=== PATIENT | female | born 1960 | race Caucasian/White ===

== ENCOUNTER 2016-11-18 06:13 | Day surgery (SDC) | payer BC, OTHER ==
[~2016-11-18] VITALS: Ht 162.6 cm; Wt 68.0 kg
[~2016-11-18 06:13] MED LIST: AMLO5TAB2 PO; LEVAAER4 IN; PRAV20TA3 OR; THYR30TA PO; TRIA75TA55 PO; [UNRECOGNIZED DRUG - CODE] PO
[2016-11-18] MEDS ORDERED: ceFAZolin 1GM/50ML D5W 50 ML IV ONE (06:49)
[2016-11-18] MEDS ORDERED: LIDOCAINE W/ EPINEPHRINE 1 % INJ 30ML ONE (07:02)
[2016-11-18] MEDS ORDERED: ceFAZolin 1GM VL ONE (07:02)
[2016-11-18] MEDS ORDERED: GELATIN 1 SPONGE SIZE 100 TOP ONE (07:03)
[2016-11-18] MEDS ORDERED: CONJ ESTROGENS 0.625MG/GM VAG CRM 30GM PV ONE (07:03)
[2016-11-18] MEDS ORDERED: VASOPRESSIN 20 UNIT/ML ONE (07:03)
[2016-11-18] MEDS ORDERED: BUPIVACAINE 0.25% INJ 50ML VIAL ONE (07:03)
[2016-11-18] MEDS ORDERED: METHYLENE BLUE 1% 1 ML VIAL IV ONE (07:03)
[2016-11-18] MEDS ORDERED: fentaNYL CITRATE 100 MCG/2 ML VL ONE ×2 (07:42→07:44)
[2016-11-18] MEDS ORDERED: MIDAZOLAM HCL 1MG/1ML-2 ML VIAL ONE (07:42)
[2016-11-18] MEDS ORDERED: PROPOFOL 10 MG/ML 20 ML IV ONE (07:42)
[2016-11-18] MEDS ORDERED: ROCURONIUM 10MG/ML 10ML VIAL IV ONE (07:43)
[2016-11-18] MEDS ORDERED: SUCCINYLCHOLINE CHLORIDE 20 MG/ML 10ML VIAL IV ONE (07:56)
[2016-11-18] MEDS ORDERED: HYDROmorphone HCL 2 MG/ML VL ONE (08:56)
[2016-11-18] MEDS: HYDROmorphone HCL 2 MG/ML VL IV PRN ×4 (09:02→09:32)
[2016-11-18] MEDS ORDERED: hydrALAZINE HCL 20 MG/ML VL IV PRN (09:15)
[2016-11-18] MEDS ORDERED: ONDANSETRON HCL 4 MG/2 ML VIAL IV ONE (09:15)
[2016-11-18] MEDS ORDERED: ePHEDrine SULFATE 50 MG/ML AMP IV PRN (09:15)
[2016-11-18 09:55] VITALS: BP 100/45
== END 2016-11-18 09:55 | disposition home or self-care (01) ==
LOC: SUR 06:13
PROVIDERS: ATTEND Obstetrics & Gynecology
DX: N81.10 Cystocele, unspecified (principal); K21.9 Gastro-esophageal reflux disease without esophagitis; I10 Essential (primary) hypertension; E03.9 Hypothyroidism, unspecified; E78.00 Pure hypercholesterolemia, unspecified; Z87.891 Personal history of nicotine dependence; Z90.710 Acquired absence of both cervix and uterus; J45.909 Unspecified asthma, uncomplicated
CPT/HCPCS: 57106; 57240; 57288; 88302; C1771; J0330; J0690; J1170; J2001; J2250; J2704; J3010; J3490